=== PATIENT | female | born 1970 | race Caucasian/White ===

== ENCOUNTER 2017-12-24 12:35 | Emergency (ER) | payer MEDICAID, SELFPAY ==
[2017-12-24 12:36] VITALS: BP 174/103; PULSE 88; RESP 16; TEMP 36.8; O2SAT 98; BMI 34.3
[2017-12-24 13:02] LABS: Bacteria 0 SEEN /hpf (None Seen); Mucous, Urine 0 SEEN /hpf (<or=2+); Red Blood Cells-Urine 0 SEEN /hpf (0-5); White Blood Cells 0 SEEN /hpf (0-5)
[2017-12-24 13:12] LABS: Color, Urine Yellow (Yellow); Glucose, Dipstick 1000 mg/dl (Normal); Ketone-Dipstick Negative (Negative); Leukocyte Esterase-Dipstick Negative /ul (Negative); Nitrite-Dipstick Negative (Negative); Occult Blood-Urine 10 /ul (Negative); Protein-Dipstick 15 mg/dl (Negative); Specific Gravity, Urine 1.015 (1.002-1.030); Urine Bilirubin Dipstick Negative (Negative); Urine Clarity Clear (Clear); Urine Urobilinogen Normal (Normal)
[2017-12-24 13:20] LABS: Squamous Epithelial Cells - UA 0-5 SEEN /hpf (5-10)
[2017-12-24 13:21] LABS: Amorphous Sediment 1+
--- NOTE | 2017-12-24 13:40 | US_ITS ---
STUDY: ULTRASOUND OF THE FEMALE PELVIS - COMPLETE REASON FOR EXAM: Female, 47 years old. One week history of left-sided pelvic pain. LMP: December 02, 2017. TECHNIQUE: Transvaginal TECHNICAL QUALITY: Adequate. COMPARISON: None. FINDINGS: The uterus is anteverted and is in a midline position. The uterus measures 9.4 cm x 4.5 cm x 3.9 cm. Normal uterine cervix. The endometrium measures 9.0 mm in thickness, and is hyperechoic. There is no demonstrated endometrial mass. There is a 2 cm x 1.9 cm x 1.1 cm fibroid in the fundal portion of the uterus. I.U.D. - The patient does not have an I.U.D. The right ovary is visualized. The right ovary measures 4.1 cm x 2.8 cm x 2.4 cm. There is no right ovarian cyst or ovarian mass. There is no visualized right adnexal mass or complex lesion. There is normal arterial and normal venous vascularity. The left ovary is visualized. The left ovary measures 4.3 cm x 3.8 cm x 2.3 cm. There is no left ovarian cyst or ovarian mass. There is no visualized left adnexal mass or complex lesion. There is normal arterial and normal venous vascularity. There is no fluid in the cul-de-sac. Polycystic ovary disease: No. US/Transvaginal Non- IMPRESSION: 2 cm x 1.9 cm x 1.1 cm fibroid in the fundal portion of uterus. Electronically Signed: Obinna Hernandez MD at 15:32 EDT Tel [phone], Service support ,
[2017-12-24 14:09] LABS: Absolute Lymphocyte Count 4.07 X10^3/ul (0.83-4.51); Absolute Neutrophil Count 5.9 X10^3/uL (2.0-7.7); Basophil# 0.07 X10^3/uL; Basophil% 0.6 % (0-1); Eosinophil# 0.13 X10^3/uL; Eosinophils% 1.2 % (0-5); Hematocrit 45.6 % (37-47); Hemoglobin 15.7 g/dl (12.0-15.0); Lymphocyte # 4.07 X10^3/ul (4.0); Lymphocyte % 36.9 % (19-41); Mean Corp Hgb Conc 34.4 g/gl (32-36); Mean Corpuscular Hgb 32.8 pg (27.0-32.0); Mean Corpuscular Volume 95.2 fL (81-99); Mean Platelet Vol. 9.7 fl (6.2-12.0); Monocyte# 0.86 X10^3/uL; Monocyte% 7.8 % (0-10); Neutrophil # 5.85 X10^3/uL (2.7-7.7); POSITIVE COUNT NO; POSITIVE DIFFERENTIAL NO; POSITIVE MORPHOLOGY NO; Platelet Count 344 K/mm3 (150-450); RBC Distribution Width CV 12.4 % (11.6-14.6); RBC Distribution Width SD 42.1 fl (35.1-43.9); Red Blood Count 4.79 M/mm3 (4.2-5.4)
--- NOTE | 2017-12-24 15:45 | ED.VISSUMM ---
- ER Visit Summary Date of Service: 12/24/17 Chief Complaint: Pelvic pain History of Present Illness: The patient is a 47 F presents with vaginal and pelvic pain for the past week gradual onset no vaginal bleeding no discharge no dysuria frequency urgency or hematuria. No recent sexual intercourse denies Physical Examination: Not appear in acute distress. Moist mucous membranes, no obvious facial deformity No C-spine tenderness supple neck. Regular rate and rhythm without any obvious murmurs Clear lungs bilaterally speaking in full sentences without any obvious respiratory distress Abdomen soft and nontender no guarding or rebound. There is slight left pelvic pain. Speculum exam shows normal external genitalia no discharge cervix is closed with a normal exam. Moves all extremities without any difficulty or pain. Skin does not show any obvious rashes or lesions, no trauma. Alert oriented ?3 with no gross focal deficit Emergency Department Course and Treatment: GC and Chlamydia were sent, she is negative for trichomonas and urinalysis was also negative. An ultrasound appears normal. I will discharge her with [employer] follow-up. We are still pending GC and Chlamydia per hospital protocol. Disposition: Discharge stable condition Impression: Pelvic pain This note was generated with RE2 dictation software. It may contain incorrect words, spelling, and punctuation that were not noted in review of the chart prior to signing ED Disposition - Plan for ED Patient: Disposition: Home or Assisted Living Chief Complaint: Female C/O Instructions: ED Pelvic Pain [facility] Referrals: Neelima Newby [Primary Care Provider] - 3-5 Days Danika Ha [STAFF PHYSICIAN] - 3-5 Days
--- NOTE | 2017-12-24 15:50 | ED.DCSUM_ITS ---
- ER Visit Summary Date of Service: 12/24/17 Chief Complaint: Pelvic pain History of Present Illness: The patient is a 47 F presents with vaginal and pelvic pain for the past week gradual onset no vaginal bleeding no discharge no dysuria frequency urgency or hematuria. No recent sexual intercourse denies Physical Examination: Not appear in acute distress. Moist mucous membranes, no obvious facial deformity No C-spine tenderness supple neck. Regular rate and rhythm without any obvious murmurs Clear lungs bilaterally speaking in full sentences without any obvious respiratory distress Abdomen soft and nontender no guarding or rebound. There is slight left pelvic pain. Speculum exam shows normal external genitalia no discharge cervix is closed with a normal exam. Moves all extremities without any difficulty or pain. Skin does not show any obvious rashes or lesions, no trauma. Alert oriented ?3 with no gross focal deficit Emergency Department Course and Treatment: GC and Chlamydia were sent, she is negative for trichomonas and urinalysis was also negative. An ultrasound appears normal. I will discharge her with [employer] follow-up. We are still pending GC and Chlamydia per hospital protocol. Disposition: Discharge stable condition Impression: Pelvic pain This note was generated with [employer] dictation software. It may contain incorrect words, spelling, and punctuation that were not noted in review of the chart prior to signing ED Disposition - Plan for ED Patient: Disposition: Home or Assisted Living Chief Complaint: Female C/O Instructions: ED Pelvic Pain [facility] Referrals: Neelima Newby [Primary Care Provider] - 3-5 Days Danika Ha [STAFF PHYSICIAN] - 3-5 Days
[2017-12-24 16:04] VITALS: PULSE 84; RESP 16; O2SAT 95
[2017-12-24] MEDS: Azithromycin 250 MG Tablet 1000 MG PO (16:10)
[2017-12-24] MEDS: Ceftriaxone 500 MG Vial 250 MG IM (16:25)
== END 2017-12-24 16:49 | disposition home or self-care (01) ==
PROVIDERS: Emergency Provider Emergency Medicine; Family Provider Family Medicine; PCP Family Medicine
DX: R10.2 Pelvic and perineal pain (principal); E11.9 Type 2 diabetes mellitus without complications; Z72.0 Tobacco use
CPT/HCPCS: 76830; 81001; 85025; 87210; 87491; 87591; 96372; 99282; A4216